=== PATIENT | male | born 1985 | race Caucasian/White ===

== ENCOUNTER 2021-09-17 12:53 | Emergency (ER) | payer SELFPAY ==
[~2021-09-17] VITALS: Ht 177.8 cm; Wt 86.2 kg
[~2021-09-17 12:53] MED LIST: ACETAMINOPHEN500 M1 PO; AUGMENTIN 875-1 EACH PO; BACTRIM DS TAB1 EACH PO; COLACE100 MG PO; OXY-IR 5MG5 MG PO; ZOFRAN8 MG PO
[2021-09-17] MEDS ORDERED: AMOX TR-K CLV1 EAC4 PO (13:20)
[2021-09-17] MEDS ORDERED: MOTRIN600 MG PO (13:20)
== END 2021-09-17 13:28 | disposition home or self-care (01) ==
LOC: FER 12:53
DX: K04.7 Periapical abscess without sinus (principal); K02.9 Dental caries, unspecified
CPT/HCPCS: 99282; Q0163